=== PATIENT | male | born 1940 | race Caucasian/White ===

== ENCOUNTER 2017-03-11 10:16 | Observation (INO) | payer MEDICARE, OTHER ==
[2017-03-11] VITALS (11 sets, daily range): BP systolic 99–163; BP diastolic 42–76; PULSE 55–84; RESP 15–22; Ht 157.5 cm; Wt 80.5 kg
[~2017-03-11] VITALS: Ht 157.5 cm; Wt 80.5 kg
[2017-03-11] MEDS ORDERED: ASPI-664 PO (10:49)
[2017-03-11] MEDS ORDERED: TICA90TA PO (10:49)
[2017-03-11] MEDS ORDERED: ISOS30TA5 PO (10:49)
[2017-03-11] MEDS ORDERED: METF1000 PO (10:50)
[2017-03-11] MEDS ORDERED: ATOR40TA68 PO (10:50)
[2017-03-11] MEDS ORDERED: METO-448 PO (10:51)
[2017-03-11] MEDS ORDERED: LISI-313 PO (10:51)
[2017-03-11 11:15] LABS: BASOPHILS % 0.6 % (0.0-2.0); EOSINOPHILS # 0.3 10^3/ul (0.0-0.5); HEMATOCRIT 40.6 % (42.0-52.0); HEMOGLOBIN 13.6 g/dl (14.0-18.0); LYMPHOCYTES # 2.3 10^3/ul (0.8-2.9); LYMPHOCYTES % 36.1 % (15.0-51.0); MEAN CORPUSCULAR HEMOGLOBIN 28.5 pg (29.0-33.0); MEAN CORPUSCULAR HGB CONC 33.5 g/dl (32.0-37.0); MEAN CORPUSCULAR VOLUME 84.9 fl (82.0-101.0); MEAN PLATELET VOLUME 8.6 fl (7.4-10.4); MONOCYTE # 0.5 10^3/ul (0.3-0.9); MONOCYTES % 7.1 % (0.0-11.0); NEUTROPHIL # 3.4 10^3/ul (1.6-7.5); NEUTROPHILS % 51.7 % (39.0-77.0); PLATELET COUNT 293 10^3/UL (140-415); RED BLOOD COUNT 4.78 10^6/ul (4.70-6.10); RED CELL DISTRIBUTION WIDTH 13.2 % (11.5-14.5); WHITE BLOOD COUNT 6.5 10^3/ul (4.8-10.8)
[2017-03-11 11:22] LABS: ALBUMIN 4.6 g/dl (3.3-4.9); ALBUMIN/GLOBULIN RATIO 1.31; BILIRUBIN,INDIRECT 0.4 mg/dl (0-1.1); BILIRUBIN,TOTAL 0.4 mg/dl (0.2-1.3); TOTAL PROTEIN 8.1 g/dl (6.1-8.1)
[2017-03-11 11:24] LABS: CREATININE 1.13 mg/dl (0.61-1.24); POTASSIUM 4.7 mmol/L (3.5-5.1)
[2017-03-11 11:33] LABS: INR 0.93; PROTIME 12.5 Sec (11.9-14.9)
[2017-03-11 11:34] LABS: PARTIAL THROMBOPLASTIN TIME 30.1 Sec (25.0-35.0)
[2017-03-11] MEDS ORDERED: VERAPAMIL 5 MG INJ ONE (12:04)
[2017-03-11] MEDS ORDERED: LIDOCAINE 1% (MDV) 20 ML INJ ONE (12:04)
[2017-03-11] MEDS ORDERED: IODIXANOL LOCM 100 ML BTL ONE ×4 (12:04→14:12)
[2017-03-11] MEDS ORDERED: HEPARIN 1000 UNITS/ML 10 ML INJ ONE (12:04)
[2017-03-11] MEDS ORDERED: NITROGLYCERIN (IC) 100 MCG/ML INJ ONE (12:04)
[2017-03-11] MEDS ORDERED: MIDAZOLAM 1 MG/ML 2 ML INJ ONE (12:11)
[2017-03-11] MEDS ORDERED: FENTAnyl 50 MCG/ML VIAL ONE (12:11)
[2017-03-11] MEDS ORDERED: BIVALIRUDIN 250MG /NS 50 ML 50 ML IVPB ONE ×2 (13:15→14:05)
[2017-03-11] MEDS ORDERED: IOHEXOL 350MG/ML 50 ML BTL ONE (13:15)
[2017-03-11] MEDS ORDERED: ASPIRIN 325 MG TAB ONE (14:37)
[2017-03-11] MEDS ORDERED: TICAGRELOR 90 MG TABLET ONE (14:37)
--- NOTE | 2017-03-11 14:38 | RADRPT ---
Vent Rate: 69 bpm RR Interval: 0 msec WV Interval: 158 msec QRS Duration: 86 msec QT Interval: 384 msec QTC Interval: 411 msec P-R-T [place]: 66 - 81 - 49 degrees Normal sinus rhythm Normal ECG Electronically Signed By: Jean-Pierre Arnett [id number]
[2017-03-11] MEDS ORDERED: SOD CHLORIDE 0.9% 1,000 ML IV SCH ×2 (14:40→15:00)
[2017-03-11] MEDS ORDERED: ALBUTEROL HFA 8 GM INHALER ONE (14:48)
--- NOTE | 2017-03-11 14:58 | OPR ---
Date/Time of Note Date/Time of Note DATE: 03/11/17 TIME: 14:49 Operative Report Preoperative Diagnosis CAD Postoperative Diagnosis 3VCAD s/p PCI/CHASE OM1 Surgeon see signature line Control System Manager none Anesthesia Type: moderate sedation Estimated Blood Loss: minimal Transfusion none Specimen none Grafts/Implants none Complications none Procedure Description Left heart cath s/p PCI/CHASE of the Circumflex right and left coronary angiography supervision/interpretation of right and left coronary angiography right radial artery approach Procedure Description The patient broght to the labor delivery rn after informed consent obtained. The right radial artery was cannulated using the seldinger technique and a 5F sheath was inserted. Thereafter, bilateral selective angiography was performed using a JR4 and JL 3.5catheters , respectively. A 5f voda guide use to cannulate the circumflex artery and a run through wire used to cross the OM1 lesion, PTCA with a 2.0x20 mm balloon used , follwed by a 2.25 x 30mm CHASE in the mid-distal region and 2.5x12mm CHASE. A 2.5x 200mm NC balloon used to inflate up to 2.75mm in the mid and proximal region with 0% residual stensois. The procedure was tolerated well without complication. Findings: LM - normal LAD - prox stent patent, distal to stent 40% and mid-distal 60% CX - 50% ostial, OM1 ostial 80%, then 99% > pci followed by [id number] distal CHASE, 2.5x12mm proximal overalapping > 2.5x30mm NC balloon for post dialtion RCA - 30% ostial, mid /distal stents patent Plan: asa/JOSEPH Calzada MD Mar 11, 2017 14:58
[2017-03-11] MEDS ORDERED: ACETAMINOPHEN 325 MG TAB PO PRN (15:00)
[2017-03-11] MEDS ORDERED: hydrALAzine 20 MG INJ IV PRN (15:00)
[2017-03-11] MEDS ORDERED: AL HYDROX/MG HYDROX/SIMETH 30 ML CUP PO PRN (15:00)
[2017-03-11] MEDS ORDERED: ONDANSETRON 4 MG INJ IV PRN (15:00)
[2017-03-11] MEDS ORDERED: GLUCOSE GEL 15 GRAM TUBE BUCCAL PRN (17:30)
[2017-03-11] MEDS ORDERED: DEXTROSE 50% 50 ML SYRINGE IV PRN ×2 (17:30)
[2017-03-11] MEDS ORDERED: GLUCOSE GEL 15 GRAM TUBE PO PRN ×2 (17:30)
[2017-03-11] MEDS ORDERED: GLUCAGON 1 MG INJ IM PRN (17:30)
[2017-03-11] MEDS: INSULIN ASPART [NOVOLOG] 3 ML PEN SC SCH ×2 (17:35→20:20)
--- NOTE | 2017-03-11 20:13 | HP ---
DATE OF ADMISSION: 03/11/2017 CHIEF COMPLAINT: Chest pain. HISTORY OF PRESENT ILLNESS: This is a 77-year-old male with a past medical history of diabetes, his tory of hypertension, history of coronary artery disease, who presents to [facility] to undergo elective cardiac catheterization. The patient in outpatient setting was noted to have anginal type symptoms, dyspnea on exertion and chest pain with exertion. The patient was seen by h is primary musculoskeletal physiotherapist. Given his history of coronary artery disease, a recommendation of cardiac cath was made. The patient underwent elective cardiac catheterization by Dr. Mckinley. The patient h ad PCI with a drug-eluting stent at the circumflex. Following the procedure, the patient was admitt ed to intensive care unit for observation. Upon my evaluation of the patient at this time, the patient is currently stable, denies any fevers, chills, nausea, vomiting or any chest pain. PAST MEDICAL HISTORY: As stated above, history of coronary artery disease, history of hypertension, history of diabetes, history of dyslipidemia. PAST SURGICAL HISTORY: Status post cath. FAMILY HISTORY: Not contributory. SOCIAL HISTORY: Does not drink, smoke or do drugs. MEDICATIONS: The patient's medications have been reviewed and reconciled. REVIEW OF SYSTEMS: A 14-point review of systems conducted, pertinent positives stated in the HPI, o therwise negative. PHYSICAL EXAMINATION: VITALS: Blood pressure is 126/63, respirations 16, pulse 62, temperature 98.7. HEENT: Head is normocephalic. NECK: Supple. HEART: Regular rate. LUNGS: Show diminished breath sounds at the base. ABDOMEN: Soft, nontender to palpation. No rebound or guarding. EXTREMITIES: Negative for clubbing, cyanosis. No edema. DERMATOLOGIC: No rashes. MUSCULOSKELETAL: No joint effusions. NEUROLOGIC: No focal deficits. Patient's medications have been reviewed. LABORATORY DATA: Shows a white count of 6.5, hemoglobin 13.6, hematocrit of 40.6, platelet count 29 3. The patient has a sodium 144, potassium 4.7, BUN 14, creatinine 1.13. ASSESSMENT AND PLAN: This is a 77-year-old male who presents with: 1. Coronary artery disease. The patient is status post cardiac cath with PCI to his circumflex. T he patient is currently stable. Plan is to continue current medical management, continue Brilinta, continue aspirin, continue lisinopril, continue statin therapy, continue metoprolol. 2. Hypertension. Continue current blood pressure regimen. Blood pressure well controlled. 3. Dyslipidemia. Continue statin therapy. 4. Diabetes. Continue Accu-Cheks, insulin sliding scale. Hold metformin. 5. Gastrointestinal and DVT prophylaxis. We will continue Pepcid. We will give Pepcid and sequent ial leg squeezers. Please note I spent over 25 minutes of hrcn-eb-bcer time with this patient. The patient is FULL COD E. Dictated By: KEDAR TREVINO DO NR/NTS Conf#: [id number] DID#: [id number]
[2017-03-11] MEDS: METOPROLOL 25 MG TAB PO SCH (20:16)
[2017-03-11] MEDS: TICAGRELOR 90 MG TABLET PO SCH (20:17)
[2017-03-11] MEDS ORDERED: ATORVASTATIN 40 MG TAB PO SCH (21:00)
[2017-03-12] VITALS (12 sets, daily range): BP systolic 96–137; BP diastolic 53–66; PULSE 58–79; RESP 15–21
[2017-03-12] MEDS ORDERED: ACCU-CHEK XX SCH (02:00)
[2017-03-12 05:52] LABS: BASOPHILS % 0.7 % (0.0-2.0); EOSINOPHILS # 0.2 10^3/ul (0.0-0.5); EOSINOPHILS % 3.2 % (0.0-7.0); HEMATOCRIT 34.7 % (42.0-52.0); HEMOGLOBIN 11.9 g/dl (14.0-18.0); LYMPHOCYTES # 1.3 10^3/ul (0.8-2.9); LYMPHOCYTES % 22.8 % (15.0-51.0); MEAN CORPUSCULAR HEMOGLOBIN 28.9 pg (29.0-33.0); MEAN CORPUSCULAR HGB CONC 34.3 g/dl (32.0-37.0); MEAN CORPUSCULAR VOLUME 84.2 fl (82.0-101.0); MONOCYTE # 0.5 10^3/ul (0.3-0.9); MONOCYTES % 7.6 % (0.0-11.0); NEUTROPHIL # 3.8 10^3/ul (1.6-7.5); NEUTROPHILS % 65.2 % (39.0-77.0); PLATELET COUNT 247 10^3/UL (140-415); RED BLOOD COUNT 4.12 10^6/ul (4.70-6.10); RED CELL DISTRIBUTION WIDTH 13.3 % (11.5-14.5); WHITE BLOOD COUNT 5.9 10^3/ul (4.8-10.8)
[2017-03-12 06:31] LABS: CREATININE 1.24 mg/dl (0.61-1.24); POTASSIUM 4.4 mmol/L (3.5-5.1)
[2017-03-12] MEDS: INSULIN ASPART [NOVOLOG] 3 ML PEN SC SCH (07:35)
[2017-03-12] MEDS: METOPROLOL 25 MG TAB PO SCH (08:57)
[2017-03-12] MEDS ORDERED: ISOSORBIDE MONONITRATE(SR)30 MG TAB PO SCH (09:00)
[2017-03-12] MEDS: TICAGRELOR 90 MG TABLET PO SCH (09:00)
[2017-03-12] MEDS ORDERED: ASPIRIN (EC) 81 MG TAB PO SCH (09:00)
[2017-03-12] MEDS ORDERED: LISINOPRIL 5 MG TAB PO SCH (09:00)
--- NOTE | 2017-03-12 13:03 | DS ---
DATE OF ADMISSION: 03/11/2017 DATE OF DISCHARGE: 03/12/2017 HOSPITAL COURSE: This is a 77-year-old male with a past medical history of diabetes, hypertension, coronary artery disease who presented to [facility] and underwent elective cardiac catheterization. The patient had a PCI with a drug-eluting stent to the circumflex. Following the procedure, the patient was admitted to the intensive care unit where he was noted to be clinically stable without any complications. The patient's other medical problems including hypertension, dysl ipidemia, diabetes have been well controlled. The patient also had normal renal function. Currentl y, at this time, the patient will be discharged home where he will follow up with his primary cardio logist, Dr. Mckinley, in 1 week's time. FINAL DIAGNOSES: 1. Coronary artery disease status post cardiac catheterization with PCI to circumflex. 2. Hypertension. 3. Dyslipidemia. 4. Diabetes. FINAL MEDICATIONS: Patient will resume his home regimen of: 1. Aspirin 81 mg daily. 2. Lipitor 40 mg at bedtime. 3. Imdur 30 mg daily. 4. Lisinopril 5 mg daily. 5. Metformin 1000 mg b.i.d. 6. Metoprolol 25 mg b.i.d. and Brilinta 90 mg p.o. b.i.d. At the time of discharge, the patient is stable, in no acute distress. Please note I spent over 40 minutes of time preparing the patient's discharge. Dictated By: KEDAR NICOLE/JESSICA Conf#: [id number] DID#: [id number]
--- NOTE | 2017-03-13 13:15 | RADRPT ---
Vent Rate: 66 bpm RR Interval: 0 msec MD Interval: 156 msec QRS Duration: 84 msec QT Interval: 406 msec QTC Interval: 425 msec P-R-T [place]: 63 - 63 - 80 degrees Normal sinus rhythm Normal ECG Electronically Signed By: Jean-Pierre Arnett [id number]
== END 2017-03-12 11:00 | disposition home or self-care (01) ==
LOC: SDS 10:16 → REC 15:12 → ICU 15:22
PROVIDERS: ADMIT Internal Medicine; ATTEND Internal Medicine
DX: I25.10 Atherosclerotic heart disease of native coronary artery without angina pectoris (principal); I10 Essential (primary) hypertension; E78.5 Hyperlipidemia, unspecified; E11.9 Type 2 diabetes mellitus without complications; Z79.84 Long term (current) use of oral hypoglycemic drugs
CPT/HCPCS: 80048; 80053; 82962; 85025; 85610; 85730; 87081; 93005; 93458; C1725; C1874; C1887; C9600; G0378; J0583; J1644; J1815; J2250; J3010; Q9967